=== PATIENT | female | born 1975 | race Caucasian/White ===

== ENCOUNTER → 2019-04-09 08:17 | Outpatient (CLI) | payer OTHER, SELFPAY ==
--- NOTE | ~2019-04-09 | MMUS_ITS ---
EXAMINATION: MM diagnostic priyanka RT w alysa, US breast RT limited HISTORY: Six-month follow-up mammographic asymmetry of right breast compared to left breast noted on 08/21/2018 baseline screening mammogram TECHNIQUE: ML, MLO and cc full field and spot 3-D tomosynthesis images of the right breast were perfo rmed and synthetic 2-D images were generated. CAD analysis was submitted and interpreted. High resolu tion upper outer and lower-outer right breast ultrasound was performed. COMPARISON: 08/21/2018 bilateral digital screening mammogram 09/15/2018 diagnostic right digital mammogram and limited right breast ultrasound BREAST PARENCHYMAL COMPOSITION: There are scattered areas of fibroglandular density. FINDINGS: MAMMOGRAPHIC FINDINGS: No reproducible mass or architectural distortion is evident. No malignant calcification, skin thicken ing or retraction. No significant new or developing density since 08/21/2018. ULTRASOUND: 10:00 5 cm from nipple: Parallel circumscribed 2.6 x 5.8 x 8.3 mm minimally septated cyst 12:00 3 cm from nipple: 3 mm x 4 simple cyst IMPRESSION: 1. No mammographic evidence of malignancy 2. Routine mammographic screening follow-up is recommended BI-RADS Category 2: Benign finding(s). Reviewed, dictated and finalized at location A. CURER IMPRESSION: 1. No mammographic evidence of malignancy 2. Routine mammographic screening follow-up is recommended BI-RADS Category 2: Benign finding(s).
== END ==
PROVIDERS: Visit Provider Obstetrics & Gynecology
DX: R92.8 Other abnormal and inconclusive findings on diagnostic imaging of breast (principal)
CPT/HCPCS: 76642; 77061; 77065; G0279

== ENCOUNTER → 2020-11-20 15:11 | Outpatient (CLI) | payer BC, SELFPAY ==
--- NOTE | ~2020-11-20 | MM_ITS ---
EXAMINATION: MM screening priyanka BI w alysa HISTORY: Screening TECHNIQUE: Craniocaudal and mediolateral oblique 3-D tomosynthesis images were obtained and synthetic 2-D images were generated. CAD analysis was submitted and interpreted. COMPARISON: Comparison to multiple prior studies sequentially, with oldest reviewed study dated 08/21. BREAST PARENCHYMAL COMPOSITION: There are scattered areas of fibroglandular density. FINDINGS: There is a new mass measuring 7 mm in the upper central right breast. The left breast is st able without evidence for malignancy. IMPRESSION: 1. New 7 mm right breast mass. 2. Additional mammographic views and possible breast ultrasound are recommended. BI-RADS Category 0: Incomplete: Needs additional imaging evaluation. Reviewed, dictated and finalized at location A. IMPRESSION: 1. New 7 mm right breast mass. 2. Additional mammographic views and possible breast ultrasound are recommended . BI-RADS Category 0: Incomplete: Needs additional imaging evaluation.
== END ==
PROVIDERS: Visit Provider Obstetrics & Gynecology
DX: Z12.31 Encounter for screening mammogram for malignant neoplasm of breast (principal); R92.8 Other abnormal and inconclusive findings on diagnostic imaging of breast
CPT/HCPCS: 77063; 77067

== ENCOUNTER → 2020-12-22 08:43 | Outpatient (CLI) | payer BC, SELFPAY ==
--- NOTE | ~2020-12-22 | MMUS_ITS ---
EXAMINATION: MM diagnostic priyanka RT w alysa, US breast RT limited HISTORY: New 7 mm mass reported in upper central right breast on 11/20/2020 screening mammogram TECHNIQUE: Additional full field ML and spot MLO, CC and MLO 3-D tomosynthesis images of the right br east were performed and synthetic 2-D images were generated. CAD analysis was submitted and interpret ed. High resolution targeted upper central right breast ultrasound was performed. COMPARISON: 11/20/2020 bilateral screening mammogram FINDINGS: MAMMOGRAPHIC FINDINGS: There is a circumscribed 6.5 mm mass with halo sign in the upper mid right breast at approximately 12 :00 position approximately 5.5 cm deep to the nipple. The mammographic appearance suggests benign pro cess. ULTRASOUND: 12:00 6 cm from nipple: Parallel circumscribed 5.9 x 3.3 x 5.9 mm sonolucency without internal vascul arity, with through transmission, compatible with simple cyst. IMPRESSION: 1. Benign approximately 6 mm cyst at 12:00; no mammographic evidence of malignancy 2. Routine mammographic screening is recommended. BI-RADS Category 2: Benign finding(s). Reviewed, dictated and finalized at location A. IMPRESSION: 1. Benign approximately 6 mm cyst at 12:00; no mammographic evidence of maligna ncy 2. Routine mammographic screening is recommended. BI-RADS Category 2: Benign finding(s).
== END ==
PROVIDERS: Visit Provider Obstetrics & Gynecology
DX: R92.8 Other abnormal and inconclusive findings on diagnostic imaging of breast (principal)
CPT/HCPCS: 76642; 77061; 77065; G0279

== ENCOUNTER → 2021-05-23 02:10 | Outpatient (CLI) | payer BC, SELFPAY ==
[2021-05-23 13:01] LABS: SARS-CoV-2 RNA PCR Negative
== END ==
PROVIDERS: Visit Provider Orthopaedic Surgery
DX: Z01.812 Encounter for preprocedural laboratory examination (principal); Z20.822 Contact with and (suspected) exposure to COVID-19
CPT/HCPCS: C9803; U0003; U0005

== ENCOUNTER 2021-05-24 01:50 | Day surgery (SDC) | payer BC, SELFPAY ==
[2021-05-22 12:50] VITALS: BMI 39.0
--- NOTE | 2021-05-22 13:03 | PC.NURSE ---
Report to the Outpatient Waiting Room, entrance under the green pavilion located off [facility], at time 0730 on date 05/24/21. OR Time: 0930. - You and your visitor will be asked a series of questions to screen for COVID 19 for your protection. - A mask is required within the hospital. One visitor will be allowed to accompany the patient into the hospital. Patients visitor will be instructed to remain with patient at all times or leave the building. We will allow the visitor to come back to the postoperative area when patient is ready. Preoperative COVID Testing Requirements: COVID TEST 05/24 AT 0830 No COVID Test needed if: (proof is required; if not received patient will have Rapid Test prior to entry) - Patient has received COVID Vaccine at least 14 days prior to procedure date or - Patient has positive COVID test result within last 90 days of surgery date. COVID Test needed if above criteria is not met If not COVID vaccinated a COVID test must be conducted within 72 hours of surgery and patient is asked to isolate self from time of testing until procedure. You will go to the [facility] for your COVID testing. The [facility] site is located at the corner of [address] [facility]. You will only be called if COVID results are positive and your surgeon may reschedule your elective surgery date. Patients may have clear liquids (water, carbonated beverages, clear teas, apple juice) until 3 hours prior to surgery with a maximum of 20 ounces. - No food from midnight until time of surgery Take the following medications with a SIP of water the morning of surgery: PAIN PILL (IF NEEDED) Medications to discontinue per physician: N/A Date to take last dose: N/A Please no make-up, nail korean, hairspray, perfume, deodorant, or body powder the day of surgery. No jewelry (including any body piercings) or valuables the day of surgery, leave them at home. Please take a shower or bath the night before, or the morning of, surgery with an antibacterial soap. Wear comfortable, loose fitting clothing. - Jewelry must be removed prior to entering the operating room. Rings and piercings that are not removed may be cut off. - The hospital will not accept responsibility for valuables. - Please leave all valuables, including medications, at home the day of surgery. If you are going home after surgery, a licensed stage driver must drive you home. - NO public transportation without another adult. - We recommend that an adult stay with you for 24 hours following discharge. - We also recommend that you do not drive, make important decision, drink alcoholic beverages, or take any drugs that were not prescribed by your health care provider for at least 24 hours after your discharge time. Follow any additional instructions given to you from your surgeon. Telephone instructions given to KASANDRA HUERTAS and asked if any additional questions and then verbalized understanding. Patient advised to call surgeon office or pre surgery nurse liaison [phone] if any additional questions.
[2021-05-24] VITALS (9 sets, daily range): BP systolic 132–144; BP diastolic 76–96; PULSE 80–105; RESP 14–22; TEMP 36.1–36.9; O2SAT 95–100
--- NOTE | ~2021-05-24 | XR_ITS ---
EXAMINATION: XR surgery orthopedic DATE: 05/24/2021 11:22 INDICATION: ORIF left humeral fracture TECHNIQUE: 3 fluoroscopic images of the proximal left humerus were obtained during procedure performe d by Dr. Fischer. Radiologist was not present for the imaging or procedure. The amount of fluoroscopy time used during this procedure was 0.5 minutes. COMPARISON: 05/22/2021 FINDINGS: Interval open reduction internal fixation of the previously seen comminuted fractures of the proximal left humerus which appears to involve both the surgical neck and portion of the greater tuberosity. Fractures fixed with a lateral plate and screws. There is persistent mild medial impaction with sligh t varus angulation. No new fractures identified. IMPRESSION: 1. Fluoroscopy utilized during reduction internal fixation of a comminuted proximal left humeral frac ture. See procedure note for further detail. Reviewed, dictated and finalized at location A. IMPRESSION: 1. Fluoroscopy utilized during reduction internal fixation of a comminuted prox imal left humeral fracture. See procedure note for further detail.
--- NOTE | 2021-05-24 07:14 | WPDHPUPDATE1 ---
History and Physical Update Update Date/Time: 05/24/21 07:14 History and Physical has been reviewed, including an updated exam of the patient. There are NO changes in the patient's condition. Risks, benefits, and alternatives have been discussed and questions answered. Patient agrees to proceed with procedure.
--- NOTE | 2021-05-24 07:47 | ECG_ITS ---
Measurements Intervals [place] Rate: 100 P: 16 FL: 142 QRS: 39 QRSD: 84 T: 20 QT: 330 QTc: 427 Interpretive Statements SINUS TACHYCARDIA BORDERLINE ECG NO PREVIOUS ECG AVAILABLE FOR COMPARISON Electronically Signed On 05-24-2021 15:40:45 CDT by Mike Dalton M.D.
[2021-05-24] MEDS: KETOROLAC 15 MG/ML VIAL (*BKC) IV PUSH (08:37)
[2021-05-24] MEDS: LACTATED RINGERS 1,000 ML 30 ML IV CONT (08:40)
--- NOTE | 2021-05-24 08:42 | SUR.PREOP ---
did not shave left arm due to pt extreme pain with movement,left arm remains in sling for comfort.
--- NOTE | 2021-05-24 08:55 | P.PNAN_ITS ---
Anes - Initial Pre Proc Eval Procedure: Operation Date: 05/24/21 09:30 Proposed Procedures p Open Reduction Internal Fixation Left Proximal Humerus Fracture - Jarrett Fischer MD Date/Time: 05/24/21 08:55 Surgeon: Jarrett Fischer MD Pre Op Diagnosis: left proximal humerus fx Patient Data Age: 45 Gender: F Height: 1.6 m Weight: 103.6 kg Last Vital Signs Temp 36.9 C 05/24/21 07:56 Pulse 105 H 05/24/21 07:56 Resp 16 05/24/21 07:56 BP 144/91 H 05/24/21 07:56 Pulse Ox 98 05/24/21 07:56 Allergies Allergy/AdvReac Type Severity Reaction Status Date / Time No Known Allergies Allergy Verified 05/24/21 07:58 Home Medications Medication Instructions Recorded Confirmed Type etonogestrel 0.12 mg-ethinyl 1 vag ring VAGINAL ONCE 01/13/19 05/22/21 History estradiol 0.015 mg/24 hr vaginal ring lisinopril 20 mg tablet 20 mg PO DAILY #90 tablet 05/15/21 05/24/21 Rx hydrocodone 7.5 mg-acetaminophen 1 tablet PO Q6H PRN #30 tablet 05/22/21 05/24/21 Rx 325 mg tablet ibuprofen 800 mg PO TID PRN 05/22/21 05/24/21 History acetaminophen-codeine 1 tablet PO PRN 05/24/21 05/24/21 History Patient hx anesthesia problems: post op nausea/vomiting Family hx anesthesia problems: none Results Review: All pre-operative results and documents have been reviewed as part of the pre-operative evaluation. [facility] Past Medical History Medical History Essential (primary) hypertension Fracture of proximal end of left humerus Shoulder fracture Family History Family History Mother Asthma Family history of chronic obstructive pulmonary disease Family history of emphysema Cerebrovascular accident Father Family history of alcoholism Cerebrovascular accident, Onset Age: 52 Hypertension, Onset Age: 52 Social History Social History Smoking packs per day: 1 Smoking cigarettes per day: 20.0 Years smoked: 20 Smoking pack-years: 20.00 Smoking status: Former smoker Tobacco type: cigarettes Second hand tobacco smoke exposure: No Smoking end date: 02/25/16 Alcohol intake: never Alcohol use details: 6 EVERY 3-6 MONTHS Substance use: never Substance use type: does not use Living arrangements: with family Spiritual care concerns: No Anes - Eval Final PreProcedure Day of Procedure 05/24/21 08:55 Patient weight: morbidly obese Heart: regular rate and rhythm Lungs: clear to auscultation Airway: Mallampati scale class II Neurological: alert and oriented Last oral intake: >/= 8 hours ASA classification: III Emergent: no Anesthetic plan: proceed Anesthesia type and monitoring: general ETT and standard monitoring Results Review: All pre-operative results and documents have been reviewed as part of the pre-operative evaluation. Informed Consent: The patient's anesthetic plan and its attendant risks and benefits were discussed with the patient/family/POA. Questions were solicited and answers provided to the satisfaction of the patient/family/POA.
[2021-05-24] MEDS: SCOPOLAMINE 1.5 MG PATCH TRANSDERM (09:03)
--- NOTE | 2021-05-24 09:15 | W.PM.PROC2 ---
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 Fracture has comminution, displacement and angulation. Presents for operative treatment. Description of Procedure Patient identified in the preoperative holding. Informed consent given. Operative extremity marked. Patient received intravenous antibiotics. Patient brought to the operating room where underwent general anesthetic by anesthesia team. Positioned supine on operating room table. Time-out performed confirming the patient, site of the surgery and the plan. Left shoulder area prepped and draped usual sterile surgical fashion using a ChloraPrep skin solution. Anatomic landmarks mapped out on the left shoulder. Deltopectoral type approach utilized and skin incision made with a 15 blade knife. Hemostasis controlled electrocautery. Cephalic vein identified and was retracted medially. Any of the lateral vein connections were cauterized. Using the deltopectoral interval with an bluntly dissected down to the proximal humerus. The biceps tendon was identified as a landmark in we stay lateral to this. Comminuted impacted displaced fracture was noted. Hematoma was suctioned. The fracture was then reduced and provisionally pinned. Image intensification confirmed the reduction. There was a large anterior spike from the humeral shaft which was identified and carefully reduced at the calcar position of the humeral head. A lateral plate was then positioned and fixed with 3.5 mm cortical screws for the shaft and 4.0 mm screws for the humeral head. The 1st screw the humeral head was placed nonlocking to reduce the plate to the bone. We then used locking screws. 2. FiberWire suture was placed at the greater tuberosity insertion of the supraspinatus anteriorly and posteriorly as well as the infraspinatus posteriorly. These were then passed through the humeral plate and secured. Image intensification confirmed final reduction and placement of the hardware. Wound was thoroughly irrigated antibiotic solution and the fascia was then repaired with 0 Vicryl interrupted suture. Subcutaneous tissue repaired with 2-0 Vicryl interrupted suture and the skin repaired with mariana. Sterile dressing applied. The patient was then woken from anesthesia, extubated and taken to the recovery room in stable condition. All sponge, needle, instrument counts were correct at the end of the case. Implants Arthrex proximal humeral plate with screws. Estimated Blood Loss 200 Drains No Packing No Pathology None sent Complications None Condition Stable Disposition PACU
[2021-05-24] MEDS: ceFAZolin 2 GM/D5W 50 ML 2 GM/50 ML BAG IVPB (09:24)
--- NOTE | 2021-05-24 09:26 | WPDANESPNB ---
Anes - Peripheral Nerve Block Date/Time: 05/24/21 09:26 I have discussed with the patient/family/POA the placement of a peripheral nerve block for post-operative pain management, including associated risks, benefits, complications, and side effects. Alternative methods of post-operative analgesia were detailed. Questions were solicited and answers provided to the satisfaction of the patient/family/POA. Time-Out: A pre-procedural Time-Out was completed immediately before starting the procedure and confirmed: Patient Identification, Site, Procedure, Patient Position and the Availability of Requisite Equipment. Clinical Indications: Acute post-operative pain management requested by the operative surgeon. Nerve Block Insertion Note Anes-nerve block: interscalene left Needle: 22 gauge, stimulating, insulated echogenic needle. Needle length: 50 mm Technique: nerve stimulation lost at (mA) and ultrasound Technique comment: mid2mg [id number] Injectate: bupivacaine 0.5% with epi 5 mcg/ml (30ml no epi) Observations: tolerated well Complications: none Procedure start time:: 916 Procedure end time:: 921
== END 2021-05-24 13:55 | disposition home or self-care (01) ==
PROVIDERS: PCP Family Medicine; Visit Provider Orthopaedic Surgery
PROC: (CPT 23615; principal; 2021-05-24 09:30)
DX: S42.292A Other displaced fracture of upper end of left humerus, initial encounter for closed fracture (principal); G89.18 Other acute postprocedural pain; W06.XXXA Fall from bed, initial encounter; I10 Essential (primary) hypertension; Z87.891 Personal history of nicotine dependence; E66.01 Morbid (severe) obesity due to excess calories; Z68.41 Body mass index [BMI] 40.0-44.9, adult
CPT/HCPCS: 64415; 23615; 93005; A9270; C9803; J0690; J1100; J1170; J1885; J2250; J2405; J2704; J2710; J3010; J7120; U0003; U0005

== ENCOUNTER → 2022-10-03 14:05 | Outpatient (CLI) | payer BC, SELFPAY ==
--- NOTE | ~2022-10-03 | MM_ITS ---
EXAMINATION: MM screening [facility] BI w alysa HISTORY: Screening mammogram TECHNIQUE: Craniocaudal and mediolateral oblique 3-D tomosynthesis images were obtained and synthetic 2-D images were generated. CAD analysis was submitted and interpreted. COMPARISON: 12/22/2020, 11/20/2020, 04/09/2019, 09/15/2018, 08/21/2018 BREAST PARENCHYMAL COMPOSITION: There are scattered areas of fibroglandular density. FINDINGS: A right breast cyst demonstrates interval decrease in size. No suspicious mass, calcificati on, or architectural distortion are identified in either breast to suggest malignancy. There has been no suspicious interval change. IMPRESSION: 1. No mammographic evidence of malignancy. 2. Recommend routine screening mammography in one year. BI-RADS Category 2: Benign finding(s). Reviewed, dictated and finalized at location A.
== END ==
PROVIDERS: PCP Obstetrics & Gynecology Gynecology; Visit Provider Advanced Practice Midwife
DX: Z12.31 Encounter for screening mammogram for malignant neoplasm of breast (principal)
CPT/HCPCS: 77063; 77067

== ENCOUNTER 2022-11-07 01:23 | Day surgery (SDC) | payer BC, SELFPAY ==
[2022-10-25 15:07] VITALS: BMI 37.8
--- NOTE | 2022-11-06 16:49 | PM.HPGS ---
History of Present Illness History of Present Illness Consent: Risks, benefits, and alternatives have been discussed and questions answered. Patient agrees to proceed with procedure. Chief complaint: other fecal abnormalities Narrative: Velma Garcia is a 47 year old female Referred for colon cancer screening. She performed a Cologuard test which was positive. Review of Systems Review of Systems: All systems reviewed & are unremarkable except as noted in HPI and below PMFSH Past Medical History Medical History BMI 39.0-39.9,adult Candidiasis (~05/2021) lower abdominal fold Chronic bilateral low back pain with right-sided sciatica Claustrophobia COVID-19 (~03/2019) unvaccinated Encounter for postoperative care Encounter for wellness examination in adult Essential (primary) hypertension Family history of pancreatic cancer who of pancreatic cancer at age 66. Fracture of proximal end of left humerus Gastro-esophageal reflux disease without esophagitis Mixed hyperlipidemia total cholesterol 168, HDL 48, triglycerides 221, LDL 89 on 08/04/2019. Cholesterol 173 with triglycerides 220, HDL 54, LDL 87 on 06/26/2021. Cholesterol 179, HDL 60, triglycerides 139, LDL 95 on 05/25/2022. Morbid obesity with BMI of 40.0-44.9, adult Obesity (BMI 30-39.9) Pulmonary embolism Right upper quadrant pain Shoulder fracture Vision changes Vitamin B12 deficiency anemia (06/26/21) Level low at 196 with hemoglobin 11.7 on 06/26/2021. Normal at 406 on 02/27/2022 with hemoglobin 13.3. Surgical History Surgical History History of 1996, 1998, 2006 History of cataract surgery 2020 History of cholecystectomy 2002 History of right knee surgery 2003 Family History Family History Mother Asthma Family history of chronic obstructive pulmonary disease Family history of emphysema Cerebrovascular accident Father Family history of alcoholism Cerebrovascular accident, Onset Age: 52 Hypertension, Onset Age: 50 Social History Social History Smoking packs per day: 1 Smoking cigarettes per day: 20.0 Years smoked: 20 Smoking pack-years: 20.00 Smoking status: Former smoker Tobacco type: cigarettes Second hand tobacco smoke exposure: No Smoking end date: 07/25/16 Alcohol intake: current Alcohol use details: rarely Substance use: never Substance use type: does not use Lack of Transportation: No Lack of Food: Never True Current Housing: I Have Housing Concerned About Future Housing: No Difficulty Paying Gas/Electric Bills: No Difficulty Paying for Meds: No Currently Unemployed: No Education: Trade/Vocational Certificate Difficulty w/ Childcare or Family Care: No Living arrangements: with family Occupation/Education: occupation 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 [employer] Gender identity (if verbalized by the patient): Female Sexual Orientation (if Verbalized by the Patient): Straight or Heterosexual Spiritual care concerns: No Meds Home Medications and Allergies Home Medications Medication Instructions Recorded Confirmed Type etonogestrel 0.12 mg-ethinyl 1 vag ring vaginal DIRECTED 01/13/19 11/07/22 History estradiol 0.015 mg/24 hr vaginal ring (NuvaRing) famotidine-Ca carb-mag hydrox 10 1 tablet PO BID PRN indigestion 06/05/21 11/07/22 History mg-800 mg-165 mg chewable tablet (Pepcid Complete) cyanocobalamin (vitamin B-12) 2,000 mcg PO DAILY 12/06/21 11/07/22 History 1,000 mcg tablet ibuprofen 200 mg tablet (Advil) 600 mg PO Q6H PRN pain 12/06/21 11/07/22 History irbesartan 150 mg tablet 150 mg PO DAILY #30 tabs 06/06/22 11/07/22 Rx magnesium 250 mg tablet 250 mg PO DAILY 10/25/22 11/07/22
[2022-11-07 07:17] VITALS: BP 126/89; PULSE 109; RESP 16; TEMP 35.9; O2SAT 99
--- NOTE | 2022-11-07 07:23 | WPDANESEPPF ---
Anes - Initial Pre Proc Eval Procedure: Operation Date: 11/07/22 08:30 Proposed Procedures p Colonoscopy - Ari Harvey MD Date/Time: 11/07/22 07:23 Surgeon: Ari Harvey MD Pre Op Diagnosis: other fecal abnormalities Patient Data Age: 47 Gender: F Height: 1.6 m Weight: 96.4 kg Last Vital Signs Temp 35.9 C L 11/07/22 07:17 Pulse 109 H 11/07/22 07:17 Resp 16 11/07/22 07:17 BP 126/89 11/07/22 07:17 Pulse Ox 99 11/07/22 07:17 O2 Del Method Room Air 11/07/22 07:17 Allergies Allergy/AdvReac Type Severity Reaction Status Date / Time No Known Allergies Allergy Verified 11/07/22 07:15 Home Medications Medication Instructions Recorded Confirmed Type etonogestrel 0.12 mg-ethinyl 1 vag ring vaginal DIRECTED 01/13/19 11/07/22 History estradiol 0.015 mg/24 hr vaginal ring (NuvaRing) famotidine-Ca carb-mag hydrox 10 1 tablet PO BID PRN indigestion 06/05/21 11/07/22 History mg-800 mg-165 mg chewable tablet (Pepcid Complete) cyanocobalamin (vitamin B-12) 2,000 mcg PO DAILY 12/06/21 11/07/22 History 1,000 mcg tablet ibuprofen 200 mg tablet (Advil) 600 mg PO Q6H PRN pain 12/06/21 11/07/22 History irbesartan 150 mg tablet 150 mg PO DAILY #30 tabs 06/06/22 11/07/22 Rx magnesium 250 mg tablet 250 mg PO DAILY 10/25/22 11/07/22 History Patient hx anesthesia problems: none Family hx anesthesia problems: none Results Review: All pre-operative results and documents have been reviewed as part of the pre-operative evaluation. [facility] Past Medical History Medical History BMI 39.0-39.9,adult Candidiasis (~05/2021) lower abdominal fold Chronic bilateral low back pain with right-sided sciatica Claustrophobia COVID-19 (~03/2019) unvaccinated Encounter for postoperative care Encounter for wellness examination in adult Essential (primary) hypertension Family history of pancreatic cancer who of pancreatic cancer at age 66. Fracture of proximal end of left humerus Gastro-esophageal reflux disease without esophagitis Mixed hyperlipidemia total cholesterol 168, HDL 48, triglycerides 221, LDL 89 on 08/04/2019. Cholesterol 173 with triglycerides 220, HDL 54, LDL 87 on 06/26/2021. Cholesterol 179, HDL 60, triglycerides 139, LDL 95 on 05/25/2022. Morbid obesity with BMI of 40.0-44.9, adult Obesity (BMI 30-39.9) Pulmonary embolism Right upper quadrant pain Shoulder fracture Vision changes Vitamin B12 deficiency anemia (06/26/21) Level low at 196 with hemoglobin 11.7 on 06/26/2021. Normal at 406 on 02/27/2022 with hemoglobin 13.3. Surgical History Surgical History History of 1996, 1998, 2006 History of cataract surgery 2020 History of cholecystectomy 2002 History of right knee surgery 2003 Family History Family History Mother Asthma Family history of chronic obstructive pulmonary disease Family history of emphysema Cerebrovascular accident Father Family history of alcoholism Cerebrovascular accident, Onset Age: 52 Hypertension, Onset Age: 52 Social History Social History Smoking packs per day: 1 Smoking cigarettes per day: 20.0 Years smoked: 20 Smoking pack-years: 20.00 Smoking status: Former smoker Tobacco type: cigarettes Second hand tobacco smoke exposure: No Smoking end date: 07/25/16 Alcohol intake: current Alcohol use details: rarely Substance use: never Substance use type: does not use Lack of Transportation: No Lack of Food: Never True Current Housing: I Have Housing Concerned About Future Housing: No Difficulty Paying Gas/Electric Bills: No Difficulty Paying for Meds: No Currently Unemployed: No Education: Trade/Vocational Certificate Difficulty w/ Childcare
[2022-11-07] MEDS: LACTATED RINGERS 1,000 ML 150 ML IV CONT (07:27)
[2022-11-07 08:26] VITALS: BP 92/52; PULSE 98; RESP 26; O2SAT 100
[2022-11-07 08:36] VITALS: BP 107/58; PULSE 85; RESP 24; O2SAT 100
[2022-11-07 08:46] VITALS: BP 119/81; PULSE 85; RESP 18; O2SAT 100
== END 2022-11-07 08:50 | disposition home or self-care (01) ==
PROVIDERS: PCP Family Medicine; Referring Provider Obstetrics & Gynecology Gynecology; Visit Provider Internal Medicine Gastroenterology
PROC: 0DJD8ZZ Inspection of Lower Intestinal Tract, Via Natural or Artificial Opening Endoscopic (ICD-10-PCS; CPT 45378; principal; 2022-11-07 08:30)
DX: Z12.11 Encounter for screening for malignant neoplasm of colon (principal); D12.3 Benign neoplasm of transverse colon; K64.8 Other hemorrhoids; R19.5 Other fecal abnormalities; I10 Essential (primary) hypertension; K21.9 Gastro-esophageal reflux disease without esophagitis; E78.2 Mixed hyperlipidemia; D51.3 Other dietary vitamin B12 deficiency anemia; Z86.711 Personal history of pulmonary embolism; Z87.891 Personal history of nicotine dependence; E66.9 Obesity, unspecified; Z68.37 Body mass index [BMI] 37.0-37.9, adult
CPT/HCPCS: 45381; 45385; 88305; J2704; J7120

== ENCOUNTER 2023-10-07 09:25 | Outpatient (CLI) | payer BC, SELFPAY ==
--- NOTE | ~2023-10-07 | MMUS_ITS ---
EXAMINATION: MM diagnostic priyanka BI w alysa, US breast RT limited HISTORY: Palpable right breast abnormality. TECHNIQUE: Additional 3-D tomosynthesis images of the breasts were performed and synthetic 2-D images were generated. CAD analysis was submitted and interpreted. High resolution Limited right breast ult rasound was performed. COMPARISON: Comparison to multiple prior studies sequentially, with oldest reviewed study dated 08/21/2018. BREAST PARENCHYMAL COMPOSITION: Not dense: There are scattered areas of fibroglandular density. FINDINGS: MAMMOGRAPHIC FINDINGS: There are no suspicious masses, calcifications or architectural distortion in either breast to sugges t malignancy. ULTRASOUND: Limited right breast ultrasound: Normal heterogeneous echotexture without focal solid or cystic mass. IMPRESSION: 1. No evidence for malignancy in either breast. 2. Routine yearly screening mammogram and regular clinical breast examination are recommended. BI-RADS CATEGORY 1 - NEGATIVE Reviewed, dictated and finalized at location B. IMPRESSION: 1. No evidence for malignancy in either breast. 2. Routine yearly screening mammogram and regular clinical breast examination a re recommended. BI-RADS CATEGORY 1 - NEGATIVE
== END 2023-10-07 09:26 ==
LOC: MICIMG 09:26
PROVIDERS: PCP Family Medicine; Visit Provider Advanced Practice Midwife
DX: N63.10 Unspecified lump in the right breast, unspecified quadrant (principal)
CPT/HCPCS: 76642; 77062; 77066; G0279

== ENCOUNTER 2024-04-22 13:05 | Outpatient (CLI) | payer BC, SELFPAY | END 2024-04-22 13:06 | disposition home or self-care (01) | PROVIDERS: PCP Family Medicine; Visit Provider Family Medicine | DX: G56.03 Carpal tunnel syndrome, bilateral upper limbs (principal) | CPT/HCPCS: 95886; 95911 ==

== ENCOUNTER 2024-11-04 13:11 | Outpatient (CLI) | payer BC, SELFPAY ==
--- NOTE | ~2024-11-04 | MM_ITS ---
EXAMINATION: MM screening priyanka BI w alysa HISTORY: Screening TECHNIQUE: Craniocaudal and mediolateral oblique 3-D tomosynthesis images were obtained and synthetic 2-D images were generated. CAD analysis was submitted and interpreted. COMPARISON: Comparison to multiple prior studies sequentially, with oldest reviewed study dated , 08/21/2018 BREAST PARENCHYMAL COMPOSITION: There are scattered areas of fibroglandular density. FINDINGS: There is no evidence of suspicious mass, calcification, or architectural distortion to suggest malignancy in either breast. IMPRESSION: 1. No mammographic evidence of malignancy. 2. Recommend routine screening mammography in one year. BI-RADS Category 1: Negative Reviewed, dictated and finalized at location B.
== END 2024-11-04 13:12 | disposition home or self-care (01) ==
LOC: MICIMG 13:12
PROVIDERS: PCP Family Medicine; Visit Provider Obstetrics & Gynecology Gynecology
DX: Z12.31 Encounter for screening mammogram for malignant neoplasm of breast (principal)
CPT/HCPCS: 77063; 77067

== ENCOUNTER 2025-01-28 00:49 | Day surgery (SDC) | payer BC, SELFPAY ==
[2025-01-19 14:51] VITALS: BMI 39.8
--- NOTE | 2025-01-19 15:03 | PC.NURSE ---
[facility] has started construction of its new state of the art ER which will open Spring 2026. With this, we anticipate parking may be a challenge for some our surgical patients and families. Parking spaces are limited but are available for all Surgical, obstetrics, and ER patients sharing this lot. If you arrive and find you are having a hard time finding a parking space, please note that we understand the challenges, please drive around the hospital and park near Hospital Entrance 1. When you enter this entrance, you can ask a volunteer to direct or take you back to the surgical waiting area to check in. We appreciate everyone?s understanding of these expected challenges while we build for your future. Report to the Outpatient Waiting Room, entrance under the green pavilion located off [address], at time _0730 on date __01/28/2025 . Planned Procedure Time: __0930 .? Time changes happen often and if your time is changed the preop area will call you the afternoon before. - You and your visitor will be asked to self-screen and do not enter if you have any COVID symptoms. Please call surgeon if you need to reschedule. - A mask is optional within the hospital at this time. Patients may have clear liquids (water, carbonated beverages, clear teas, apple juice) until 8 hours prior to surgery with a maximum of 20 ounces. - No food from midnight until time of surgery and no smoking, or chewing tobacco (or any form of nicotine). No chewing gum, candy or mints. - Infants may have breast milk until 4 hours before surgery, formula 6 hours prior to surgery. - Children will be allowed to drink immediately following surgery.? If applicable, please bring a bottle or sippy cup to assist with drinking. Juice, water, soda, and popsicles are readily available.? For infants on formula, please bring formula the day of surgery.? Pacifiers are allowed. Take only the following medications with a SIP of water on the morning of surgery: _N/A DO NOT STOP ANY OF YOUR OTHER PRESCRIPTION MEDICATIONS PRIOR TO SURGERY EXCEPT THE FOLLOWING Hold all vitamins and supplements for 3 days per anesthesiologist. Medications to discontinue per physician ____N/A Date to take last dose__N/A Please no make-up, nail irish, hairspray, perfume, deodorant, or body powder the day of surgery.? No jewelry (including any body piercings) or valuables the day of surgery, leave them at home.? Please take a shower or bath the night before, or the morning of, surgery with an antibacterial soap.? Wear comfortable, loose fitting clothing.? Children are encouraged to wear pajamas. - Jewelry must be removed prior to entering the operating room.? Rings and piercings that are not removed may be cut off. - The hospital will not accept responsibility for valuables.? - Please leave all valuables, including medications, at home the day of surgery. If you are going home after surgery, a licensed sales route driver helper must drive you home.? - NO public transportation without another adult if you receive anesthesia. - We recommend that an adult stay with you for 24 hours following discharge. - We also recommend that you do not drive, make important decision, drink alcoholic beverages, or take any drugs that were not prescribed by your health care provider for at least 24 hours after your discharge time. For Pediatric surgeries, we recommend two adults accompany the child home. Follow any additional instructions given to you from your surgeon. Telephone instructions given to __Velma and asked if any additional questions and then verbalized understanding. Patient advised to call surgeon office or pre surgery nurse liaison [phone] if any additional questions.
--- OUTSIDE RECORDS SUMMARY | 2025-01-28 00:53 | XMS_ITS ---
Author Organization Unknown ENCOUNTERS Encounter Performer Location Date Diagnosis Diagnosis Status Outpatient Yosef Tidwellsylvie [facility] [address] [place] [address] [phone] [facility] [address] [place] [address] [id number] [facility] Outpatient [facility] [address] [place] [address] [phone] [facility] Outpatient [facility] [address] [place] [address] [id number] *Note: Encounters from your own facility or health system may be excluded. Allergies, Adverse Reactions, Alerts Allergen Type Severity Identification Date Medications Name Date Quantity Days Supplied GPI Number
--- OUTSIDE RECORDS SUMMARY | 2025-01-28 00:53 | XMS_ITS | Clinical Summary ---
Author Organization [facility] Address [address] [place] [address] Care Team Providers Care Communications Professional Name Role Phone Unknown, Provider Primary Care Provider Unavaila ble Source Comments [facility],non-owned Affiliates and Associated Physician Practices is amultiple site organization consisting of ambulatory clinics and hospital sitesin [place], [place], [place] and [place]. This disclosure is being madepursuant to the Care Everywhere program and may not contain all information available regarding this patient. Last updated 17.[facility] Allergies No known active allergies Medications * Be aware that medications may not be up to date on this document. Alwaysverify current medications with the patient. fluticasone propionate (FLONASE) 50 MCG/ACT nasal sprayIndication s:Nasal Signs and Symptoms [place] 2 Sprays into each nostril once daily Reasons: Signs and Symptoms of Nose Diseases 1 Bottle 04/24/2016 Active albuterol HFA (VENTOLIN HFA) 108 (90 BASE) MCG/ACT inhaler Inhale 2 Puffs by mouth every 6 hours as needed for Wheezing or Cough 1 Inhaler 04/24/2016 Active Active Problems No known active problems Social History Tobacco Use Types Packs/Day Years Used Date Smoking Tobacco: Smoker, Current Status Unknown Comments Unknown Sex and Gender Information Value Date Recorded Sex Assigned at Not on file Legal 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 Gender Identity Not on file Sexual Orientation Not on file Last Filed Vital Signs Vital Sign Reading Time Taken Comments Blood Pressure 120/74 04/24/2016 3:30 PM 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 Pulse 88 04/24/2016 3:30 PM 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 Temperature 36.8 C (98.2 F) 04/24/2016 3:30 PM 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 Respiratory Rate 16 04/24/2016 3:30 PM 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 Oxygen Saturation 97% 04/24/2016 3:30 PM 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 Inhaled Oxygen Concentration - - Weight 83.9 kg (185 lb) 04/24/2016 3:30 PM 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 Height 162.6 cm (5' 4) 04/24/2016 3:30 PM 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 Body Mass Index 31.76 04/24/2016 3:30 PM 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 Plan of Treatment Health Maintenance Due Date Last Done Comments COLOGUARD (AGES 45-75) - COL ON CA SCREENING 1973 COLON MONITORING 1973 COLONOSCOPY - COLON CA SCREENING 1973 CT COLONOGRAPHY - COLON CA SCREENING 1973 Colorectal Cancer Screening 1973 FIT - COLON CA SCREENING 1973 FLEX SIG - COLON CA SCREENING 1973 LIPID TESTING 1973 MAMMOGRAM 1973 HIV SCREENING 1988 HEPATITIS C SCREENING 09/21/1991 DTAP/TDAP/TD VACCINES (1 - Tdap) 1992 HEPATITIS B VACCINE (1 of 3 - 19+ 3-dose series) 1992 PNEUMOCOCCAL VACCINE 50+ (1 of 2 - PCV) 1992 PAP SMEAR 1994 ZOSTER VACCINE (1 of 2) 09/26/2023 DEPRESSION SCREENING 02/25/2024 COVID-19 VACCINE (1 - 2024-2 6 season) 2024 INFLUENZA VACCINE (#1) 2024 HIB VACCINE Aged Out No longer eligi ble based on patient's age to complete this topic HPV VACCINE Aged Out No longer eligi ble based on patient's age to complete this topic MENINGOCOCCAL (Group B) VACC INE SHARED DECISION-MAKING Aged Out No longer eligibl e based on patient's age to complete this topic MENINGOCOCCAL GROUPS A/C/Y/W VACCINE Aged Out No longer eligible b ased on patient's age to complete this topic Insurance ANTHEM Care Teams Communications Professional Relationship Specialty Start Date End Date Unknown, Provider PCP - General 04/24/16
--- NOTE | 2025-01-28 06:45 | PM.HPGS ---
History of Present Illness History of Present Illness Chief complaint: Heri Carpal tunnel Synd, Right Trigger Finger Narrative: Patient seen and examined in pre-operative holding area. No interval change in medical history or symptoms. Patient recalls previous discussion of benefits and alternatives to procedure. Continues to desire to proceed with right endoscopic possible open carpal tunnel release and right thumb a1 missael release . Reviewed procedure, post-op expectations and risks including but not limited to bleeding, infection, injury to tendon/nerve/vessel, decreased hand function, stiffness, RSD, no change or worsening of symptoms. I discussed the possible use of assistants and their participation in the case. Patient stated understanding and signed the consent form wishing to proceed. Review of Systems Review of Systems: All systems reviewed & are unremarkable except as noted in HPI and below PMFSH Past Medical History Medical History (Updated 01/03/25 @ 11:10 by Marlin Fish APRN) Situational anxiety Obstructive sleep apnea (~11/01/24) home sleep study 11/01/2024 with AHI 7.9 with oxygen saturation 76%. Start APAP 5-15 cm water pressure. Hypersomnia Acute non-recurrent maxillary sinusitis Carpal tunnel syndrome on both sides (~2023) EMG and nerve conduction studies on 04/22/2024 reveals mild bilateral carpal tunnel syndrome. Elevated fasting glucose fasting glucose 105 on 12/16/2023 with GFR 95. Breast cancer screening by mammogram normal mammograms and right breast ultrasound on 10/07/2023. Normal 11/04/2024. Urinary frequency Tendonitis of left rotator cuff Adenomatous colon polyp (11/07/22) 15 mm sessile polyp, tubular adenoma of the transverse colon on 11/07/2022. Chronic bilateral low back pain with right-sided sciatica Right upper quadrant pain Morbid obesity with BMI of 40.0-44.9, adult Vision changes Claustrophobia Pulmonary embolism Vitamin B12 deficiency anemia (06/26/21) Level low at 196 with hemoglobin 11.7 on 06/26/2021. Normal at 406 on 02/27/2022 with hemoglobin 13.3. Level normal at 1457 with hemoglobin 13.5 on 12/16/2023. Gastro-esophageal reflux disease without esophagitis Encounter for wellness examination in adult Family history of pancreatic cancer who of pancreatic cancer at age 66. Candidiasis (~05/2021) lower abdominal fold BMI 39.0-39.9,adult Obesity (BMI 30-39.9) COVID-19 (~03/2019) unvaccinated Mixed hyperlipidemia total cholesterol 168, HDL 48, triglycerides 221, LDL 89 on 08/04/2019. Cholesterol 173 with triglycerides 220, HDL 54, LDL 87 on 06/26/2021. Cholesterol 179, HDL 60, triglycerides 139, LDL 95 on 05/25/2022. Cholesterol 173, triglycerides 185, HDL 60, LDL 85 with ratio of 2.9 on 12/16/2023. Encounter for postoperative care Fracture of proximal end of left humerus Shoulder fracture Cataract Cataract surgery bilaterally. Essential (primary) hypertension Surgical History Surgical History History of cataract surgery 2020 History of cholecystectomy 2002 History of right knee surgery 2003 History of 1996, 1998, 2006 Family History Family History Mother Asthma Family history of chronic obstructive pulmonary disease Family history of emphysema Cerebrovascular accident Father Family history of alcoholism Cerebrovascular accident, Onset Age: 52 Hypertension, Onset Age: 50 Social History Social History Smoking packs per day: 1 Smoking cigarettes per day: 20.0 Years smoked: 20 Smoking pack-years: 20.00 Smoking status: Former smoker Tobacco type: cigarettes Second hand tobacco smoke exposure: No Smoking end date: 07/25/16 Alcohol intake: current Alcohol use details: rarely Substance use: never Substance use type: does not use Lack of Transportation: No Lack of Food: Never True Current Housing: I Have Housing Concerned About Future Housing: No Difficulty Paying Gas/Electric Bills: No Difficulty Paying for Meds: No Currently Unemployed: No Education: Trade/Vocational Certificate Difficulty w/ Childcare or Family Care: No Living arrangements: with family Occupation/Education: occupation 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 [employer] Gender identity (if verbalized by the patient): Female Sexual Orientation (if Verbalized by the Patient): Straight or Heterosexual Spiritual care concerns: No Meds Home Medications and Allergies Home Medications ?Medication ?Instructions ?Recorded ?Confirmed ?Type etonogestrel 0.12 mg-ethinyl 1 vag ring vaginal DIRECTED 01/13/19 01/19/25 History estradiol 0.015 mg/24 hr vaginal ring (NuvaRing) famotidine-Ca carb-mag hydrox 10 1 tablet PO BID PRN indigestion 06/05/21 01/19/25 History mg-800 mg-165 mg chewable tablet (Pepcid Complete) cyanocobalamin (vitamin B-12) 2,000 mcg PO DAILY 12/06/21 01/28/25 History 1,000 mcg tablet magnesium 250 mg tablet 250 mg PO DAILY 10/25/22 01/28/25 History meloxicam 15 mg tablet 15 mg PO DAILY PRN pain #30 tabs 12/22/23 01/19/25 Rx irbesartan 300 mg tablet 300 mg PO DAILY #30 tabs 10/04/24 01/19/25 Rx buspirone 7.5 mg tablet 7.5 mg PO QHS PRN anxiety #30 tabs 01/03/25 01/19/25 Rx semaglutide (weight loss) 0.25 0.25 mg (0.5 mL) subcut WEEKLY #2 01/12/25 01/19/25 Rx mg/0.5 mL subcutaneous pen mL injector (Wegovy) tramadol 50 mg tablet 50 mg PO Q6H PRN pain #12 tabs 01/28/25 Rx Allergies Allergy/AdvReac Type Severity Reaction Status Date / Time No Known Allergies Allergy Verified 01/28/25 08:33 Exam Narrative: unchanged Assessment and Plan Assessment and plan (1) Trigger thumb, right thumb: Code(s): M65.311 - Trigger thumb, right thumb Status: Acute Assessment and Plan: cont as above (2) Carpal tunnel syndrome on both sides: Onset Date: ~2023 Code(s): G56.03 - Carpal tunnel syndrome, bilateral upper limbs Status: Acute
--- NOTE | 2025-01-28 06:46 | W.PM.PROC2 ---
Procedure Note - Detailed Date of Procedure 01/28/25 Pre-op Diagnosis Heri Carpal tunnel Synd, Right Trigger thumb Post-op Diagnosis Same Procedure Performed right ectr and right thumb a1 missael release Surgeon Mervin Aguilar MD Dispute Resolution Analyst noel pacheco pa-c Anesthesia MAC Description of Procedure INFORMED CONSENT: The patient was seen and examined and marked in the pre-op area.? The patient signed the consent form. PROCEDURE IN DETAIL:The patient taken back to OR on the stretcher in supine position. Time out performed with anesthesia, surgeon and staff agreeing on patient's name site and surgery to be performed SCDs were placed on the lower extremities and inflated. A tourniquet was placed on {right} upper extremity and antibiotics given IV After anesthesia administered sedation I injected {6}cc 1%lido with epi and 0.5% marcaine plain at the operative sites The?{right upper extremity}?was prepped and draped in sterile fashion the??{right upper extremity} was? exsanguinated with Esmarch bandage and tourniquet inflated to 250mmHg I made a transverse incision in the {right} volar distal wrist crease through skin and dermis with 15 blade scalpel.? Littler scissors spread down to antebrachial fascia. A small incision was made in antebrachial fascia allowing access to Carpal tunnel. I proceeded with sequential dilation staying in line with the ring finger and hugging the hook of the hamate.? I then used the synovial elevator to free any adhesions from the underside of the transverse carpal ligament. Next I was able to insert the Microaire endoscopic carpal tunnel device with direct visualization of the transverse fibers on the monitor and proceeded with complete segmental retrograde release of the ligament in its entirety.? I irrigated with normal saline and closed with 4-0 monocryl for dermis and subcuticular closure. Next I proceeded with making an oblique incision over the right thumb A1 missael just proximal to the MP joint flexion crease through skin and dermis with a 15 blade scalpel. Littler scissors were used to spread down to the A1 missael. The A1 missael was identified and initially incised with a 15 blade scalpel. Littler scissors were used to spread above and below it proximally and distally completing the transection entirely. Ragnell retractor was used to withdraw the FPL tendon for inspection. The tendon was free of masses and synovitis and glide smoothly in the sheath without triggering or crepitus. I irrigated with normal saline and closed with 4-0 chromic. A dressing of xeroform for thumb and Dermabond at wrist, 4x4, tanner, and a volar splint was applied for patient safety, security, and comfort and secured with an doretha bandage after the tourniquet was let down noting the hand was warm and well perfused. The patient was then awaken from anesthesia and transferred to the recovery room in stable condition.? Complications - none EBL- 0cc Disposition - home in stable condition Noel Pacheco PA-C was essential for positioning, retraction, closure and dressing placement. G Billing Surgery - Charge Forward: Surgery Billing ([id number] same for noel pfeiffer )
[2025-01-28 08:10] VITALS: BP 131/61; PULSE 73; RESP 16; TEMP 36.4; O2SAT 99
[2025-01-28] MEDS: LACTATED RINGERS 1,000 ML 30 ML IV CONT (08:10)
[2025-01-28] MEDS: ACETAMINOPHEN 500 MG TABLET 1000 MG PO (08:10)
--- NOTE | 2025-01-28 08:22 | P.PNAN_ITS ---
Anes - Initial Pre Proc Eval Procedure: Operation Date: 01/28/25 09:30 Proposed Procedures p Right Endoscopic Carpal Tunnel Release, Possible open - Mervin Aguilar MD s Right Thumb A-1 Barbie Release - Mervin Aguilar MD Date/Time: 01/28/25 08:22 Surgeon: Mervin Aguilar MD Pre Op Diagnosis: Heri Carpal tunnel Synd, Right Trigger Finger Patient Data Age: 49 Gender: F Height: 1.6 m Weight: 102.06 kg Allergies Allergy/AdvReac Type Severity Reaction Status Date / Time No Known Allergies Allergy Verified 01/19/25 14:47 Home Medications ?Medication ?Instructions ?Recorded ?Confirmed ?Type etonogestrel 0.12 mg-ethinyl 1 vag ring vaginal DIR ECTED 01/13/19 01/19/25 History estradiol 0.015 mg/24 hr vaginal ring (NuvaRing) famotidine-Ca carb-mag hydrox 10 1 tablet PO BID PRN i ndigestion 06/05/21 01/19/25 History mg-800 mg-165 mg chewable tablet (Pepcid Complete) cyanocobalamin (vitamin B-12) 2,000 mcg PO DAILY 12/0601/19/25 History 1,000 mcg tablet magnesium 250 mg tablet 250 mg PO DAILY 10/25/22 History meloxicam 15 mg tablet 15 mg PO DAILY PRN pain #30 tabs 12/22/23 01/19/25 Rx irbesartan 300 mg tablet 300 mg PO DAILY #30 tabs 01/1801/19/25 Rx buspirone 7.5 mg tablet 7.5 mg PO QHS PRN anxiety #3 0 tabs 01/03/25 01/19/25 Rx semaglutide (weight loss) 0.25 0.25 mg (0.5 mL) subcut WEEKLY #2 01/12/25 01/19/25 Rx mg/0.5 mL subcutaneous pen mL injector (Dena) Patient hx anesthesia problems: none Family hx anesthesia problems: none Results Review: All pre-operative results and documents have been reviewed as part of the pre- operative evaluation. [facility] Past Medical History Medical History (Updated 01/03/25 @ 11:10 by Marlin Fish APRN) Situational anxiety Obstructive sleep apnea (~11/01/24) home sleep study 11/01/2024 with AHI 7.9 with oxygen saturation 76%. Start APAP 5-15 cm water pressure. Hypersomnia Acute non-recurrent maxillary sinusitis Carpal tunnel syndrome on both sides (~2023) EMG and nerve conduction studies on 04/22/2024 reveals mild bilateral carpal tunnel syndrome. Elevated fasting glucose fasting glucose 105 on 12/16/2023 with GFR 95. Breast cancer screening by mammogram normal mammograms and right breast ultrasound on 10/07/2023. Normal 11/04/2024. Urinary frequency Tendonitis of left rotator cuff Adenomatous colon polyp (11/07/22) 15 mm sessile polyp, tubular adenoma of the transverse colon on 11/07/2022. Chronic bilateral low back pain with right-sided sciatica Right upper quadrant pain Morbid obesity with BMI of 40.0-44.9, adult Vision changes Claustrophobia Pulmonary embolism Vitamin B12 deficiency anemia (06/26/21) Level low at 196 with hemoglobin 11.7 on 06/26/2021. Normal at 406 on 02/27/2022 with hemoglobin 13.3. Level normal at 1457 with hemoglobin 13.5 on 12/16/2023. Gastro-esophageal reflux disease without esophagitis Encounter for wellness examination in adult Family history of pancreatic cancer who of pancreatic cancer at age 66. Candidiasis (~05/2021) lower abdominal fold BMI 39.0-39.9,adult Obesity (BMI 30-39.9) COVID-19 (~03/2019) unvaccinated Mixed hyperlipidemia total cholesterol 168, HDL 48, triglycerides 221, LDL 89 on 08/04/2019. Cholesterol 173 with triglycerides 220, HDL 54, LDL 87 on 06/26/2021. Cholesterol 179, HDL 60, triglycerides 139, LDL 95 on 05/25/2022. Cholesterol 173, triglycerides 185, HDL 60, LDL 85 with ratio of 2.9 on 12/16/2023. Encounter for postoperative care Fracture of proximal end of left humerus Shoulder fracture Cataract Cataract surgery bilaterally. Essential (primary) hypertension Surgical History Surgical History History of cataract surgery 2020 History of cholecystectomy 2002 History of right knee surgery 2003 History of 1996, 1998, 2006 Family History Family History Mother Asthma Family history of chronic obstructive pulmonary disease Family history of emphysema Cerebrovascular accident Father Family history of alcoholism Cerebrovascular accident, Onset Age: 52 Hypertension, Onset Age: 52 Social History Social History Smoking packs per day: 1 Smoking cigarettes per day: 20.0 Years smoked: 20 Smoking pack-years: 20.00 Smoking status: Former smoker Tobacco type: cigarettes Second hand tobacco smoke exposure: No Smoking end date: 07/25/16 Alcohol intake: current Alcohol use details: rarely Substance use: never Substance use type: does not use Lack of Transportation: No Lack of Food: Never True Current Housing: I Have Housing Concerned About Future Housing: No Difficulty Paying Gas/Electric Bills: No Difficulty Paying for Meds: No Currently Unemployed: No Education: Trade/Vocational Certificate Difficulty w/ Childcare or Family Care: No Living arrangements: with family Occupation/Education: occupation 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 [employer] Gender identity (if verbalized by the patient): Female Sexual Orientation (if Verbalized by the Patient): Straight or Heterosexual Spiritual care concerns: No Anes - Eval Final PreProcedure Day of Procedure 01/28/25 08:22 Patient weight: obese Heart: regular rate and rhythm Lungs: clear to auscultation Airway: Mallampati scale class III Neurological: alert and oriented Last oral intake: >/= 8 hours ASA classification: III Emergent: no Anesthetic plan: proceed Anesthesia type and monitoring: general GIVS and standard monitoring Results Review: All pre-operative results and documents have been reviewed as part of the pre- operative evaluation. Informed Consent: The patient's anesthetic plan and its attendant risks and benefits were discussed with the patient/family/POA. Questions were solicited and answers provided to the satisfaction of the patient/family/POA.
[2025-01-28 09:05] LABS: BEDSIDEPREGUCG Negative (Negative)
[2025-01-28] MEDS: ceFAZolin 2 GM in SODIUM CHLORIDE 0.9% IV 50 ML 100 ML IVPB (09:28)
[2025-01-28] MEDS: LIDOCAINE 1% LOCAL INJ 10 ML VIAL INFILTRATE (09:28)
[2025-01-28] MEDS: LIDO 1%/EPINEPHRINE 1:100,000 20 ML VIAL 3 ML INFILTRATE (09:47)
[2025-01-28 09:56] VITALS: BP 101/56; PULSE 91; RESP 14; O2SAT 100
[2025-01-28 10:00] VITALS: BP 99/52; PULSE 95; O2SAT 99
[2025-01-28 10:30] VITALS: BP 109/63; PULSE 88; O2SAT 98
[2025-01-28 11:00] VITALS: BP 124/74; PULSE 74
== END 2025-01-28 11:20 | disposition home or self-care (01) ==
PROVIDERS: Physician Assistant Surgical; PCP Family Medicine; Visit Provider Plastic Surgery
PROC: 01N54ZZ Release Median Nerve, Percutaneous Endoscopic Approach (ICD-10-PCS; CPT 29848; principal; 2025-01-28 09:30)
PROC: (CPT 26055; 2025-01-28 09:30)
DX: G56.01 Carpal tunnel syndrome, right upper limb (principal); M65.311 Trigger thumb, right thumb; Z87.891 Personal history of nicotine dependence; E66.9 Obesity, unspecified; Z68.41 Body mass index [BMI] 40.0-44.9, adult
CPT/HCPCS: 29848; 26055; J0690; A9270; J1100; J2003; J2004; J2250; J2405; J2704; J3010; J7120